=== PATIENT | female | born 1950 | race Caucasian/White ===

== ENCOUNTER 2021-07-11 07:09 | Day surgery (SDC) | payer MEDICARE, SELFPAY ==
[2021-07-05 12:01] VITALS: BMI 22.6
--- NOTE | 2021-07-10 09:28 | P.CONAN_ITS ---
Documented by User: Michelle Maynard NP 07/10/21 09:29 HPI - Anesthesia Eval Consult details Narrative: 71yo F for Colonoscopy [facility] Past Medical History Medical History (Updated 07/05/21 @ 12:01 by Serenity Royal, ANNIE) Anxiety Barretts esophagus Elevated cholesterol GERD (gastroesophageal reflux disease) Hiatal hernia History of back pain HTN (hypertension) Kidney stones Ovarian cancer PONV (postoperative nausea and vomiting) Seasonal allergies Surgical History Surgical History (Updated 07/05/21 @ 11:42 by Serenity Royal, RN) History of cataract extraction History of esophagogastroduodenoscopy (EGD) Hx of colonoscopy Hx of hysterectomy Social History Social History Are you a primary care analyst to a significant other at home: No Do you presently have visiting nurse or other home services: No Patient Tobacco Use Status: Never used Tobacco Use of substances other than those prescribed or required for medical reasons: No Have you been hit, kicked, punched, or otherwise hurt by someone within the past year? If so, by whom?: No Are you DNR?: No Advance Directives: No Advance Directives Information Provided: No Advance Directives on File: No Recently lost weight without trying: No Eating poorly because of decreased appetite: No Nutrition Risks: No Nutritional Risk Patient : No Meds Allergies Allergy/AdvReac Type Severity Reaction Status Date / Time Sulfa (Sulfonamide Allergy Unknown RASH Unverified 07/05/21 11:42 Antibiotics) [SULFA (SULFONAMIDE ANTIBIOTICS)] Home Medications Medication Instructions Recorded Confirmed Last Taken Type acetaminophen 500 mg capsule 1,000 mg PO Q6H PRN 07/05/21 07/05/21 Unknown History amlodipine 5 mg-benazepril 10 mg 1 cap PO DAILY 07/05/21 07/05/21 Unknown History capsule atorvastatin 10 mg tablet 1 tab PO DAILY 07/05/21 07/05/21 Unknown History cholecalciferol (vitamin D3) 25 25 mcg PO DAILY 07/05/21 07/05/21 Unknown History mcg (1,000 unit) capsule (Vitamin D3) cranberry concentrate-ascorbic cap PO 07/05/21 07/05/21 Unknown History acid 140 mg-100 mg capsule (Cranberry Plus Vitamin C) fluticasone propionate 50 1 spray INTRANASAL DAILY 07/05/21 07/05/21 Unknown History mcg/actuation nasal spray,suspension loratadine 10 mg tablet (Claritin) 10 mg PO DAILY 07/05/21 07/05/21 Unknown History vjoaavqh-tlj-gemuy ac 400 tab PO 07/05/21 Unknown History mcg-calcium carb 500 mg-vit K1 20 mcg tablet (Women's 50 Plus Multivitamin) omega 0-cgu-mvc-fish oil 1,000 mg 1 cap PO DAILY 07/05/21 07/05/21 Unknown History (120 mg-180 mg) capsule (Fish Oil) omeprazole 20 mg capsule,delayed 1 cap PO QAM 07/05/21 07/05/21 Unknown History release Exam Exam Date and Time: July 10, 2021 0928 Height,Weight and Vital Signs: Height 5 ft 3 in Weight 58.06 kg Assessment and Plan Assessment Anesthesia Assessment: Chart Reviewed Documented by User: Kerry Araujo MD 07/11/21 08:03 [facility] Past Medical History Medical History (Updated 07/05/21 @ 12:01 by Serenity Royal, ANNIE) Anxiety Barretts esophagus Elevated cholesterol GERD (gastroesophageal reflux disease) Hiatal hernia History of back pain HTN (hypertension) Kidney stones Ovarian cancer PONV (postoperative nausea and vomiting) Seasonal allergies Family History Family history of problems with anesthesia: No Surgical History Surgical History (Updated 07/05/21 @ 11:42 by Serenity Royal, RN) History of cataract extraction History of esophagogastroduodenoscopy (EGD) Hx of colonoscopy Hx of hysterectomy History of Problems with Anesthesia: No Social History Social History Are you a primary care analyst to a significant other at home: No Do you presently have visiting nurse or other home services: No Patient Tobacco Use Status: Never used Tobacco Use of substances other than those prescribed or required for medical reasons: No Have you been hit, kicked, punched, or otherwise hurt by someone within the past year? If so, by whom?: No Are you DNR?: No Advance Directives: No Advance Directives Information Provided: No Advance Directives on File: No Recently lost weight without trying: No Eating poorly because of decreased appetite: No Nutrition Risks: No Nutritional Risk Patient : No Meds Allergies Allergy/AdvReac Type Severity Reaction Status Date / Time Sulfa (Sulfonamide Allergy Unknown RASH Unverified 07/05/21 11:42 Antibiotics) [SULFA (SULFONAMIDE ANTIBIOTICS)] Home Medications Medication Instructions Recorded Confirmed Last Taken Type acetaminophen 500 mg capsule 1,000 mg PO Q6H PRN 07/05/21 07/05/21 Unknown History amlodipine 5 mg-benazepril 10 mg 1 cap PO DAILY 07/05/21 07/05/21 Unknown History capsule atorvastatin 10 mg tablet 1 tab PO DAILY 07/05/21 07/05/21 Unknown History cholecalciferol (vitamin D3) 25 25 mcg PO DAILY 07/05/21 07/05/21 Unknown History mcg (1,000 unit) capsule (Vitamin D3) cranberry concentrate-ascorbic cap PO 07/05/21 07/05/21 Unknown History acid 140 mg-100 mg capsule (Cranberry Plus Vitamin C) fluticasone propionate 50 1 spray INTRANASAL DAILY 07/05/21 07/05/21 Unknown History mcg/actuation nasal spray,suspension loratadine 10 mg tablet (Claritin) 10 mg PO DAILY 07/05/21 07/05/21 Unknown History kmkgjfla-dkq-schgb ac 400 tab PO 07/05/21 Unknown History mcg-calcium carb 500 mg-vit K1 20 mcg tablet (Women's 50 Plus Multivitamin) omega 0-wqp-qqj-fish oil 1,000 mg 1 cap PO DAILY 07/05/21 07/05/21 Unknown Hist ory (120 mg-180 mg) capsule (Fish Oil) omeprazole 20 mg capsule,delayed 1 cap PO QAM 07/05/21 07/05/21 Unknown History release Exam Airway Mallampati Class: II TM Dist: >3cm Neck ROM: Full Assessment and Plan Assessment Anesthesia Assessment: Anesthesia Plan Discussed Final Anesthetic Review Family History of Problems with Anesthesia: No History of Problems with Anesthesia: No NPO: Yes ASA Class: II Final Preanesthetic Review: No Changes in Pt Med Stat, Meds/Allgs Chart Reviewed, Consent Obtained/Reviewed and Anes Risks/Benef Reviewed Patient Risk: Low Procedure Risk: Low Anesthetic Plan Anesthetic Plan: MAC: Disposition: Standard PACU
[2021-07-11 07:25] VITALS: BP 141/65; PULSE 105; RESP 16; TEMP 36.9; O2SAT 99
[2021-07-11] MEDS: Sodium Phosphate,Mono-Dibasic 133 ML ENEMA PR (07:48)
[2021-07-11] MEDS: Lactated Ringers 1,000 ML 100 ML IVCONT (08:14)
[2021-07-11 09:12] VITALS: BP 123/62; PULSE 98; RESP 16; TEMP 36.3; O2SAT 97
--- NOTE | 2021-07-11 09:13 | P.BOP_ITS ---
Brief Operative Note Date of Service: 07/11/21 Pre-op diagnosis: Screening Post-op diagnosis: other (Diverticulosis) Procedure: Colonoscopy to the cecum and TI Surgeon: Blanco Pope Anesthesia: MAC Was an Glass Inspector used for this Procedure?: No Estimated blood loss (mL): 0 Pathology: none sent Condition: stable Disposition: PACU
[2021-07-11 09:27] VITALS: BP 129/67; PULSE 81; RESP 16; TEMP 36.3; O2SAT 100
--- NOTE | 2021-07-11 09:53 | OP_ITS ---
SURGEON: Blanco Pope MD INDICATIONS: The patient presents for evaluation of colorectal cancer screening and family history of colon cancer full consent has been obtained from her for this, including risks of bleeding and perforation. PREOPERATIVE DIAGNOSIS: Colorectal cancer screening and family history of colon cancer. POSTOPERATIVE DIAGNOSIS: PROCEDURE PERFORMED: Colonoscopy to the cecum and terminal ileum. ESTIMATED BLOOD LOSS: COMPLICATIONS: ANESTHESIA: Medication used, monitored anesthesia care. ASSISTANTS: SPECIMENS: POSTOPERATIVE DIAGNOSES: Colorectal cancer screening and family history of colon cancer, diverticulosis and internal hemorrhoids. DESCRIPTION OF PROCEDURE: The patient was placed in the left lateral decubitus position the digital rectal exam revealed no abnormalities. The [employer] video pediatric colonoscope was entered into the rectum advanced to the cecum with the assistance of abdominal pressure. Once in the cecum, I did identify a normal-appearing cecal pouch with appendiceal orifice and a normal-appearing ileocecal valve. There was transillumination of light deep in the right lower quadrant. The terminal ileum was cannulated and appeared normal. Scope was withdrawn back in the colon. The entire cecum and ileocecal valve appeared normal. The scope was slowly withdrawn assessing all mucosal surfaces carefully. Preparation was excellent. I did not visualize any sign of polyps, colitis, nor angiodysplasia. There was a moderate amount of sigmoid diverticulosis. In the rectum, the scope was retroflexed visualizing internal hemorrhoids, but no other pathology. The rectal mucosa appeared normal. The scope was straightened and withdrawn from the patient. She tolerated the procedure well and was returned to the recovery area in stable condition. IMPRESSION: 1. Diverticulosis. 2. Internal hemorrhoids. PLAN: I would recommend a repeat colonoscopy in 5 years for further screening. She will otherwise see me on a p.r.n. basis. MD RAZIA Aranda/VERNA / [id number]
== END 2021-07-11 09:50 | disposition home or self-care (01) ==
PROVIDERS: PCP Internal Medicine; Visit Provider Internal Medicine
PROC: 0DJD8ZZ Inspection of Lower Intestinal Tract, Via Natural or Artificial Opening Endoscopic (ICD-10-PCS; CPT 45378; principal; 2021-07-11 08:20)
DX: Z12.11 Encounter for screening for malignant neoplasm of colon (principal); Z80.0 Family history of malignant neoplasm of digestive organs; K57.30 Diverticulosis of large intestine without perforation or abscess without bleeding; K64.8 Other hemorrhoids; K21.00 Gastro-esophageal reflux disease with esophagitis, without bleeding; K22.70 Barrett's esophagus without dysplasia; K44.9 Diaphragmatic hernia without obstruction or gangrene; E78.00 Pure hypercholesterolemia, unspecified; I10 Essential (primary) hypertension; J30.2 Other seasonal allergic rhinitis; Z79.51 Long term (current) use of inhaled steroids; Z79.899 Other long term (current) drug therapy; Z88.2 Allergy status to sulfonamides; Z85.43 Personal history of malignant neoplasm of ovary; Z92.21 Personal history of antineoplastic chemotherapy; Z90.710 Acquired absence of both cervix and uterus
CPT/HCPCS: G0105

== ENCOUNTER 2022-10-09 06:14 | Day surgery (SDC) | payer MEDICARE, SELFPAY ==
--- NOTE | 2022-10-08 11:27 | P.CONAN_ITS ---
HPI - Anesthesia Eval Consult details Narrative: 72yo F for Upper Endoscopy [facility] Past Medical History Medical History (Updated 10/08/22 @ 06:51 by Izabella Fink, ANNIE) Anxiety Barretts esophagus Elevated cholesterol GERD (gastroesophageal reflux disease) Hiatal hernia History of back pain HTN (hypertension) IBS (irritable bowel syndrome) Kidney stones Ovarian cancer PONV (postoperative nausea and vomiting) Seasonal allergies Family History Family history of problems with anesthesia: No Surgical History Surgical History (Updated 10/08/22 @ 06:53 by Izabella Fink RN) History of cataract extraction History of esophagogastroduodenoscopy (EGD) Hx of breast surgery Hx of colonoscopy Hx of eye surgery Hx of hysterectomy History of Problems with Anesthesia: No Social History Social History Are you a primary residential child care counselor to a significant other at home: No Do you presently have visiting nurse or other home services: No Patient Tobacco Use Status: Never used Tobacco Use of substances other than those prescribed or required for medical reasons: No Are you DNR?: No Advance Directives: No Advance Directives Information Provided: Yes Meds Allergies Allergy/AdvReac Type Severity Reaction Status Date / Time Sulfa (Sulfonamide Allergy Unknown RASH Verified 07/11/21 08:10 Antibiotics) [SULFA (SULFONAMIDE ANTIBIOTICS)] Home Medications Medication Instructions Recorded Confirmed Last Taken Type acetaminophen 500 mg capsule 1,000 mg PO Q6H PRN Pain 07/05/21 07/05/21 Unknown History amlodipine 5 mg-benazepril 10 mg 1 cap PO DAILY 07/05/21 10/09/22 10/09/22 History capsule (Lotrel) atorvastatin 10 mg tablet (Lipitor) 1 tab PO DAILY 07/05/21 07/05/21 Unknown History cholecalciferol (vitamin D3) 25 25 mcg PO DAILY 07/05/21 07/05/21 Unknown History mcg (1,000 unit) capsule (Vitamin D3) cranberry concentrate-ascorbic 1 cap PO DAILY 07/05/21 07/05/21 Unknown History acid 140 mg-100 mg capsule (Cranberry Plus Vitamin C) fluticasone propionate 50 1 spray intranasal DAILY 07/05/21 07/05/21 Unknown History mcg/actuation nasal spray,suspension (Flonase Allergy Relief) oetrxhva-rxp-sdrdp ac 400 1 tab PO DAILY 07/05/21 Unknown History mcg-calcium carb 500 mg-vit K1 20 mcg tablet (Women's 50 Plus Multivitamin) omega 0-yiw-rgp-fish oil 1,000 mg 1 cap PO DAILY 07/05/21 07/05/21 Unknown History (120 mg-180 mg) capsule (Fish Oil) omeprazole 20 mg capsule,delayed 1 cap PO QAM 07/05/21 10/09/22 10/09/22 History release Glucosamine PO DAILY 10/08/22 Unknown History famotidine 20 mg tablet (Pepcid) 20 mg PO DAILY PRN Acid Reflux 10/08/22 10/08/22 Unknown History psyllium husk 0.52 gram capsule 1.04 g PO BID 10/08/22 10/08/22 Unknown History (Daily Fiber) Exam Exam Date and Time: October 08, 2022 112 Assessment and Plan Assessment Anesthesia Assessment: Chart Reviewed Final Anesthetic Review Family History of Problems with Anesthesia: No History of Problems with Anesthesia: No
[2022-10-09 06:29] VITALS: BMI 23.6
[2022-10-09 06:35] VITALS: BP 141/67; PULSE 91; RESP 16; TEMP 36.6; O2SAT 95
[2022-10-09] MEDS: Lactated Ringers 1,000 ML 100 ML IVCONT (06:48)
--- NOTE | 2022-10-09 08:07 | P.BOP_ITS ---
Brief Operative Note Date of Service: 10/09/22 Pre-op diagnosis: GERD, Jackson's Post-op diagnosis: other (Same, Hiatal hernia) Procedure: EGD with biopsies Surgeon: Blanco Pope Anesthesia: MAC Was an Cage Supervisor used for this Procedure?: No Estimated blood loss (mL): 2.0 Pathology: other (A. EG Junction at 32cm) Condition: stable Disposition: PACU
[2022-10-09 08:10] VITALS: BP 103/43; PULSE 87; RESP 16; TEMP 36.2; O2SAT 97
[2022-10-09 08:24] VITALS: BP 111/55; PULSE 80; RESP 18; O2SAT 96
--- NOTE | 2022-10-09 08:37 | OP_ITS ---
DATE OF SERVICE: 10/09/2022 SURGEON: Blanco Pope MD INDICATIONS: The patient presents for evaluation of chronic gastroesophageal reflux and history of Jackson's esophagus. Full consent was obtained from her for this, including risks of bleeding and perforation. PREOPERATIVE DIAGNOSIS: POSTOPERATIVE DIAGNOSIS: PROCEDURE PERFORMED: Esophagogastroduodenoscopy with biopsies. ESTIMATED BLOOD LOSS: COMPLICATIONS: ANESTHESIA: Moderate anesthesia care. ASSISTANTS: SPECIMENS: PREOPERATIVE DIAGNOSES: Gastroesophageal reflux and Jackson's esophagus. POSTOPERATIVE DIAGNOSES: Gastroesophageal reflux, Jackson's esophagus, hiatal hernia. DESCRIPTION OF PROCEDURE: The patient was placed in the left lateral decubitus position. The [employer] video gastroscope was passed in the posterior oropharynx and upper esophagus under direct vision. The scope was passed slowly to the distal esophagus. The gastroesophageal junction appeared at 32 cm. There was a very minimal irregularity consistent with reflux, but no definitive evidence of Jackson's esophagus. There was no esophagitis nor any lesions. The scope entered the stomach. There was a moderate-sized hiatal hernia. The hiatal hernia mucosa appeared normal. The scope was advanced to pylorus. The duodenum was cannulated to the descending portion. The duodenum including the bulb appeared normal without mass or ulceration. The scope was withdrawn back to the stomach. The gastric antrum and body appeared normal with good peristalsis. The scope was retroflexed visualizing the proximal stomach carefully which appeared normal, without any sign of mass or ulceration. The scope was straightened and withdrawn back to the esophagus. Biopsies were obtained at the EG junction at 32 cm. Proximal to this, the esophageal mucosa appeared normal. The scope was withdrawn from the patient. She tolerated the procedure well and was returned to the recovery area in stable condition. IMPRESSION: 1. Hiatal hernia. 2. Gastroesophageal reflux. 3. History of Jackson's esophagus. PLAN: The results of the biopsies will be checked. I would recommend a repeat upper endoscopy in 2026, when she has her next colonoscopy. She will continue her omeprazole daily and occasional p.r.n. famotidine. She was advised not to use any aspirin and NSAIDs for 1 week. MD RAZIA Aranda/MARYL / [id number] [place]
[2022-10-09 08:44] VITALS: BP 112/56; PULSE 85; RESP 18; TEMP 36.2; O2SAT 95
== END 2022-10-09 09:13 | disposition home or self-care (01) ==
PROVIDERS: PCP Internal Medicine; Visit Provider Internal Medicine
PROC: 0DJ08ZZ Inspection of Upper Intestinal Tract, Via Natural or Artificial Opening Endoscopic (ICD-10-PCS; CPT 43235; principal; 2022-10-09 07:30)
DX: K21.00 Gastro-esophageal reflux disease with esophagitis, without bleeding (principal); K22.70 Barrett's esophagus without dysplasia; K44.9 Diaphragmatic hernia without obstruction or gangrene; Z79.899 Other long term (current) drug therapy
CPT/HCPCS: 43239; 88305; J2405